=== PATIENT | male | born 1945 | race Caucasian/White ===

== ENCOUNTER 2024-03-25 10:26 | Day surgery (SDC) | payer MEDICARE, BC ==
[2024-03-25] MEDS ORDERED: Sodium Chloride 0.9(Preservative Free) 10 ML IJ ONE (10:27)
[2024-03-25] MEDS ORDERED: Decadron 4 MG INJ IV ONE (10:27)
[2024-03-25] MEDS ORDERED: Sodium Chloride 0.9% 1000 ML 1,000 ML ONE (11:03)
[2024-03-25] MEDS ORDERED: DIPRIVAN 200 MG/20 ML IV ONE (11:49)
--- NOTE | 2024-03-25 13:10 | XRAY ---
Indication: Right L4-S1 transforaminal STAN. Intraoperative fluoroscopy was provided for 23 seconds. 4 digital spot image submitted for interpretation demonstrates posterior needle tips projecting over expected right L4 and L5 nerve roots. Small amount of contrast injected for needle tip placement. Correlate with intraoperative findings/report.
--- NOTE | 2024-03-25 14:06 | XRAY ---
23 seconds of fluoroscopy was used in surgery for a right L4-S1 transforaminal STAN.
== END 2024-03-25 12:25 ==
LOC: SDC-PAIN 10:26
PROVIDERS: ATTEND Psychiatry & Neurology Pain Medicine
DX: M54.16 Radiculopathy, lumbar region (principal)
CPT/HCPCS: 64483; 64484; 72100; 77003; J1100; J2704; Q9966